=== PATIENT | male | born 1975 | race Caucasian/White ===

== ENCOUNTER 2017-07-15 14:23 | Emergency (ER) | payer BC, SELFPAY ==
[~2017-07-15] VITALS: Ht 170.2 cm; Wt 79.4 kg
[2017-07-15 14:45] VITALS: BP 126/75
[2017-07-15] MEDS ORDERED: MOTRIN PO STA (14:54)
[2017-07-15] MEDS ORDERED: CLEOCIN PO STA (14:54)
[2017-07-15] MEDS ORDERED: MOTRIN ONE (14:58)
[2017-07-15] MEDS ORDERED: CLEOCIN ONE (14:58)
--- NOTE | 2017-07-15 14:59 | ER.PDOC ---
General Chief Complaint: Toothache Stated Complaint: TOOTHACHE Time seen by MD: 14:46 Source: patient Exam Limitations: no limitations History of Present Illness Initial Comments Pain, swelling L lower jaw for 3-4 days. No fever. Hx "bad tooth". Timing/Duration: gradual Severity: moderate Allergies: Coded Allergies: No Known Allergies (Unverified , 07/15/17) Past Medical History Medical History: thyroid disease Social History Smoking: greater than 1 pack/day Alcohol Use: none Drug Use: marijuana Reviewed Nursing Reviewed: Vital Signs, Abn. Noted, Nursing Assessment Constitutional: no symptoms reported Eyes: no symptoms reported Ears: no symptoms reported Nose: no symptoms reported Mouth: see HPI Throat: no symptoms reported Respiratory: no symptoms reported Cardiovascular: no symptoms reported All Other Systems: Reviewed and Negative Physical Exam General Appearance: alert, mild distress Head/Neck: head nml inspection, neck nml inspection, trachea midline, no lymphadenopathy, (L) mandibular swelling (Tender, firm mass lat to L lower bicuspids.) Mouth: widespread dental decay Throat: pharynx nml, voice nml, no airway problems Respiratory: no resp. distress, lungs clear CVS: reg. rate & rhythm, heart sounds nml Departure Time of Disposition: 14:57 Disposition: 01 HOME, SELF-CARE Impression: Primary Impression: Abscess of mandible Condition: Stable Patient Instructions: Dental Abscess Referrals: PCP,UNKNOWN (PCP) PRIMARY CARE PROVIDER Additional Instructions: Heat to jaw. Gentle massage of lump. Duration or Time Spent with Pa: 15 KAMRAN HERMAN DO Jul 15, 2017 14:59
[2017-07-15 15:21] VITALS: BP 126/75
== END 2017-07-15 15:16 | disposition home or self-care (01) ==
LOC: ER 14:23
DX: M27.2 Inflammatory conditions of jaws (principal); F17.210 Nicotine dependence, cigarettes, uncomplicated; F12.10 Cannabis abuse, uncomplicated; E07.9 Disorder of thyroid, unspecified
CPT/HCPCS: 99283

== ENCOUNTER 2017-08-19 01:12 | Observation (INO) | payer BC ==
[~2017-08-19] VITALS: Ht 177.8 cm; Wt 74.5 kg
[2017-08-19] VITALS (7 sets, daily range): BP systolic 116–140; BP diastolic 67–93
[2017-08-19] MEDS ORDERED: NS 1000ML 1,000 ML ONE ×3 (01:33→04:47)
[2017-08-19] MEDS ORDERED: PHENERGAN ONE (01:34)
[2017-08-19] MEDS ORDERED: NS 1000ML 1,000 ML STA (01:38)
--- NOTE | 2017-08-19 01:38 | ER.PDOC ---
General Chief Complaint: Nausea,Vomiting,Diarrhea Stated Complaint: NAUSEA Time seen by MD: 01:34 Source: patient Exam Limitations: no limitations History of Present Illness Initial Comments Pt started vomiting at about 6:30, vomited about 6 times since then, epigastric pain, no diarrhea Severity/Quality: severe, burning, cramping Abdominal Pain Onset Location: Epigastric Associated Symptoms (vomiting): freq vomitng Allergies: Coded Allergies: No Known Allergies (Unverified , 07/15/17) Vital Signs First Vital Signs Date Time Temp Pulse Resp B/P (MAP) Pulse Ox O2 Delivery O2 Flow Rate FiO2 07/15/17 15:21 75 08/19/17 01:28 97.7 18 100 Room Air 08/19/17 01:31 140/93 (109) Last Vital Signs Date Time Temp Pulse Resp B/P (MAP) Pulse Ox O2 Delivery O2 Flow Rate FiO2 08/19/17 01:31 97.7 81 18 140/93 (109) 100 Room Air Past Medical History Medical History: other Surgical History: no surgical history Social History Smoking: cigarettes, greater than 1 pack/day Alcohol Use: none Drug Use: marijuana Constitutional: no symptoms reported EENTM: no symptoms reported Respiratory: no symptoms reported Cardiovascular: no symptoms reported Gastrointestinal: see HPI, nausea, vomiting Genitourinary: no symptoms reported Musculoskeletal: no symptoms reported Skin: no symptoms reported Psychiatric/Neurological: no symptoms reported Endocrine: no symptoms reported Hematologic/Lymphatic: no symptoms reported Physical Exam General Appearance: No Apparent Distress, WD/WN HEENT: PERRL/EOMI, Normal ENT Inspection, TMs Normal, Pharynx Normal Neck: Non-Tender, Full Range of Motion, Supple, Normal Inspection Respiratory: chest non-tender, lungs clear, normal breath sounds, no respiratory distress, no accessory muscle use Cardiovascular: Normal Peripheral Pulses, Regular Rate, Rhythm, No Edema, No Gallop, No JVD, No Murmur Gastrointestinal: Normal Bowel Sounds, Soft, Tenderness (epigastrium) Back: Normal Inspection, No CVA Tenderness, No Vertebral Tenderness Extremities: Normal Range of Motion, Non-Tender, Normal Inspection, No Pedal Edema, No Calf Tenderness, Normal Capillary Refill, Pelvis Stable Neurologic/Psychiatric: side stitcher II-XII NML as Tested, No Motor/Sensory Deficits, Alert, Normal Mood/Affect, Oriented x 3 Skin: Normal Color, Warm/Dry Lymphatic: No Adenopathy Results/Orders Results/Orders Laboratory Tests Test 08/19/17 01:48 White Blood Count 10.3 10^3/uL (4.5-11.0) Red Blood Count 4.88 10^6/uL (4.50-5.90) Hemoglobin 14.0 g/dL (13.9-16.3) Hematocrit 42.5 % (37.0-53.0) Mean Corpuscular Volume 87.1 fL (78-100) Mean Corpuscular Hemoglobin 28.7 pg (26-34) Mean Corpuscular Hemoglobin Concent 32.9 g/dL (33-37) Red Cell Distribution Width 14.7 % (11.5-14.5) Platelet Count 270 10^3/uL (150-400) Mean Platelet Volume 9.6 fL (7.8-11.0) Neutrophils (%) (Auto) 76.9 % (41.0-85.0) Lymphocytes (%) (Auto) 16.1 % (24.0-44.0) Monocytes (%) (Auto) 5.5 % (5.0-12.0) Neutrophils # (Auto) 7.9 10^3/uL (1.8-7.7) Lymphocytes # (Auto) 1.7 10^3/uL (1.0-4.8) Monocytes # (Auto) 0.6 10^3/uL (0.3-0.8) Eosinophils % 0.3 % (0.0-5.0) Basophils % 1.2 % (0.0-0.2) Basophils # 0.1 10^3/uL (0.0-0.1) Eosinophil Count 0.0 10^3/uL (0.0-0.2) Sodium Level 139 mmol/L (132-145) Potassium Level 3.9 mmol/L (3.6-5.2) Chloride Level 100.0 mmol/L (96-109) Carbon Dioxide Level 20.2 mmol/L (20.0-32) Anion Gap 22.7 Blood Urea Nitrogen 16 mg/dL (7-18) Creatinine 1.72 mg/dL (0.59-1.40) Estimated GFR () 52.5 (>/=60) BUN/Creatinine Ratio 9.0 Glucose Level 254 mg/dL (70-110) Calcium Level 9.5 mg/dL (8.4-10.5) Total Bilirubin 0.4 mg/dL (0.2-1.0) Aspartate Amino Transf (AST/SGOT) 21 U/L (0-35) Alanine Aminotransferase (ALT/SGPT) 25 U/L (12-78) Alkaline Phosphatase 73 U/L (50-136) Total Protein 7.7 g/dL (6.4-8.2) Albumin 4.4 g/dL (3.4-5.0) Globulin 3.3 Amylase Level 44 U/L (25-115) Lipase 115 U/L (114-286) Administered Medications Medications (Trade) Dose Ordered Sig/Yojana Route PRN Reason Start Time Stop Time Status Last Admin Dose Admin Sodium Chloride 1,000 ml @ 1,000 mls/hr Q1H STAT IV 08/19/17 01:38 08/19/17 02:37 DC 08/19/17 01:51 Ondansetron HCl (Zofran) 4 mg STAT STAT IV 08/19/17 02:18 08/19/17 02:20 DC 08/19/17 02:33 Sodium Chloride 1,000 ml @ 1,000 mls/hr Q1H ONCE IV 08/19/17 03:00 08/19/17 03:59 08/19/17 02:56 Departure Time of Disposition: 03:03 Disposition: 01 HOME, SELF-CARE Impression: Primary Impression: Dehydration Additional Impressions: Nausea & vomiting Diarrhea Condition: Stable Patient Instructions: Dehydration, Adult, Diarrhea, Nausea and Vomiting, Easy- to-Read Referrals: PCP,UNKNOWN (PCP) PRIMARY CARE PROVIDER Duration or Time Spent with Pa: ROBERT CATES MD Aug 19, 2017 01:38
--- NOTE | 2017-08-19 01:52 | NUR ---
VERBAL ORDER PHENERGAN 25MG IV PER VERBAL ORDER FROM DR WOODS AT THIS TIME. ADMINISTERED AT THIS TIME.
[2017-08-19 01:56] LABS: BASOPHIL # 0.1 10^3/uL (0.0-0.1); BASOPHIL % 1.2 % (0.0-0.2); EOSINOPHIL % 0.3 % (0.0-5.0); LYMPHOCYTES # 1.7 10^3/uL (1.0-4.8); LYMPHOCYTES % 16.1 % (24.0-44.0); MEAN CELL HGB 28.7 pg (26-34); MEAN CELL HGB CONCENTRATION 32.9 g/dL (33-37); MEAN CORP VOLUME 87.1 fL (78-100); MEAN PLATELET VOLUME 9.6 fL (7.8-11.0); MONOCYTES # 0.6 10^3/uL (0.3-0.8); MONOCYTES % 5.5 % (5.0-12.0); NEUTROPHIL # 7.9 10^3/uL (1.8-7.7); NEUTROPHILS % 76.9 % (41.0-85.0); PLATELET COUNT 270 10^3/uL (150-400); RED CELL DISTRIBUTION WIDTH 14.7 % (11.5-14.5); WHITE BLOOD CELL 10.3 10^3/uL (4.5-11.0)
[2017-08-19] MEDS ORDERED: PHENERGAN 25 MG in HNS 50ML 50 ML IV PRN (02:00)
[2017-08-19 02:09] LABS: CALCIUM 9.5 mg/dL (8.4-10.5); CARBON DIOXIDE 20.2 mmol/L (20.0-32)
[2017-08-19] MEDS ORDERED: ZOFRAN IV STA (02:18)
[2017-08-19] MEDS ORDERED: ZOFRAN ONE (02:22)
--- NOTE | 2017-08-19 02:45 | NUR ---
BATHROOM PT UP TO BATHROOM AT THIS TIME.
[2017-08-19] MEDS ORDERED: NS 1000ML 1,000 ML IV ONE (03:00)
[2017-08-19] MEDS ORDERED: TRIPLE ANTIBIOTIC OINTMENT TP ONE (03:00)
--- NOTE | 2017-08-19 03:30 | NUR ---
UPDATE PT RESTING IN BED WITH BP CUFF OFF. PT REFUSE TO PUT CUFF ON AT THIS TIME DUE TO "NEEDING TO MOVE TO GET COMFORTABLE".
[2017-08-19] MEDS ORDERED: COMPAZINE ONE (03:55)
[2017-08-19] MEDS ORDERED: COMPAZINE IV STA (03:56)
--- NOTE | 2017-08-19 04:40 | NUR ---
BATHROOM PT UP TO BATHROOM AT THIS TIME.
[2017-08-19] MEDS ORDERED: ATIVAN ONE (04:47)
[2017-08-19] MEDS ORDERED: THORAZINE ONE (04:52)
[2017-08-19] MEDS: NS 1000ML 1,000 ML IV SCH ×5 (05:05→23:12)
[2017-08-19] MEDS ORDERED: THORAZINE IM STA (05:05)
--- NOTE | 2017-08-19 05:17 | NUR ---
DR SELMA WOODS ON PHONE WITH DR HAHN AT THIS TIME.
[2017-08-19] MEDS ORDERED: LORA2TAB PO (05:26)
[2017-08-19] MEDS ORDERED: CLON1TAB3 PO (05:26)
--- NOTE | 2017-08-19 05:27 | NUR ---
HOME MEDS PT STATES "I TAKE A SYNTHROID PILL, TOO, BUT I DON'T KNOW THE DOSE OR WHATEVER." PT COULD NOT TELL HOW OFTEN MEDICINE WAS TAKEN.
[2017-08-19] MEDS ORDERED: ZOFRAN IV PRN ×2 (05:30→11:00)
[2017-08-19 05:33] LABS: BASOPHIL # 0.1 10^3/uL (0.0-0.1); BASOPHIL % 0.6 % (0.0-0.2); HEMOGLOBIN 12.9 g/dL (13.9-16.3); LYMPHOCYTES # 0.9 10^3/uL (1.0-4.8); LYMPHOCYTES % 6.7 % (24.0-44.0); MEAN CELL HGB 28.7 pg (26-34); MEAN CELL HGB CONCENTRATION 32.4 g/dL (33-37); MEAN CORP VOLUME 88.6 fL (78-100); MEAN PLATELET VOLUME 9.6 fL (7.8-11.0); MONOCYTES # 0.8 10^3/uL (0.3-0.8); MONOCYTES % 5.5 % (5.0-12.0); NEUTROPHIL # 12.2 10^3/uL (1.8-7.7); NEUTROPHILS % 86.8 % (41.0-85.0); RED CELL DISTRIBUTION WIDTH 14.8 % (11.5-14.5); WHITE BLOOD CELL 14.1 10^3/uL (4.5-11.0)
--- NOTE | 2017-08-19 05:43 | NUR ---
MEDSURG PT TO MEDSURG AT THIS TIME VIA WHEELCHAIR. PT'S BELONGINGS TAKEN WITH PT TO MEDSURG. REPORT GIVEN TO SETH THIBODEAUX.
[2017-08-19 05:46] LABS: CALCIUM 8.9 mg/dL (8.4-10.5); CARBON DIOXIDE 25.3 mmol/L (20.0-32)
--- NOTE | 2017-08-19 05:47 | NUR ---
report received report from ER nurse Pt arrived on a wheel chair accompanied by staff and mother. Vital signs taken and recorded. Assessment done. No s/sx of nay distress. Pt verbalized that he still nauseous. Call light placed within reach. Will continue to monitor.
[2017-08-19 06:07] LABS: BAND NEUTROPHILS 6 % (2-6); BASOPHIL 2 % (0-2); LYMPHOCYTE 4 % (25-36); MONOCYTE 5 % (3-9); SEGMENTED NEUTROPHILS 83 % (31-76)
--- NOTE | 2017-08-19 06:43 | NUR ---
REPORT RECEIVED REPORT, ASSUMED CARE FOR PATIENT AT THIS TIME.
--- NOTE | 2017-08-19 06:45 | NUR ---
RECEIVED REPORT FROM MORELIA ANN. ASSUMED PT CARE.
--- NOTE | 2017-08-19 06:45 | NUR ---
report report given to o/c shift
[2017-08-19] MEDS ORDERED: REGLAN IV PRN (11:00)
[2017-08-19] MEDS ORDERED: TYLENOL PO PRN (11:00)
--- NOTE | 2017-08-19 13:26 | HPH ---
ADMIT DATE: 08/19/2017 CHIEF COMPLAINT: Nausea and vomiting. HISTORY OF PRESENT ILLNESS: The patient is a 42-year-old male with no significant past medical history other than anxiety disorder, who presented to ER with complaints of nausea and vomiting. He states he ate one of those precooked chickens from [employer] yesterday. He started having nausea and vomiting later that day. The onset of symptoms was about 7:00 p.m. last night. He was given fluids and multiple medications in the ER, still had persistent nausea and vomiting. No other acute changes. No fever or chills. PAST MEDICAL HISTORY: Includes anxiety disorder. PAST SURGICAL HISTORY: Denies any surgeries. ALLERGIES: No known drug allergies. HOME MEDICATIONS: He only takes a benzodiazepine twice daily, it is unclear which one. SOCIAL HISTORY: Lives at home. He does have a history of marijuana and tobacco use. Denies any alcohol use. FAMILY HISTORY: Negative for early coronary artery disease or diabetes. REVIEW OF SYSTEMS: CARDIAC: Denies chest pain, shortness of breath or dyspnea on exertion. PULMONARY: No cough, sputum production or pleuritic chest pain. GASTROINTESTINAL: Positive for nausea and vomiting. No diarrhea or constipation. All else negative in 10 point review of system except as in HPI. PHYSICAL EXAMINATION: VITAL SIGNS: Upon arrival in the ER, height 177.8 cm, weight 78.1 kilograms, temperature 97.7, pulse 81, respiratory rate is 18, blood pressure 140/93, O2 saturation 100% on room air. GENERAL: He is alert, in no acute distress at time of exam. HEENT: Pupils equal, round and reactive to light. Sclerae are anicteric. Oropharynx is clear. Mucous membranes are moist. NECK: Supple, no lymphadenopathy. CARDIOVASCULAR: At time of exam was regular rate and rhythm. LUNGS: Clear bilaterally. No wheezing. ABDOMEN: Soft. Bowel sounds are present, nontender to palpation. EXTREMITIES: No cyanosis, clubbing or edema. NEUROLOGIC: Grossly nonfocal. LABORATORY DATA: He has CBC done this morning. WBC is 14.1, hemoglobin 12.9, platelets 230. Differential: 87% neutrophils, 7% lymphocytes, 5% monocytes. Sodium 140; potassium 4.2; chloride 105; CO2 is 25; BUN 15; creatinine 1.31, initial creatinine is 1.72, glucose 161, calcium is 8.9, total bilirubin 0.4, AST 17, ALT 24, alkaline phosphatase 65, total protein 7.0, albumin 3.9, amylase 44, lipase 115. ASSESSMENT AND PLAN: The patient is a 42-year-old man here with acute gastroenteritis, possibly secondary to food poisoning with history of tobacco and marijuana use with acute renal failure secondary to acute tubular necrosis due to dehydration. 1. Continue IV fluid hydration. 2. Diet as tolerated. 3. Appropriate p.r.n. pain and nausea medication. 4. We will continue his Ativan twice daily. 5. DVT prophylaxis will be with Lovenox if in the hospital more than 24 hours. Time spent on 08/19/2017 is 45 minutes. This plan was discussed with the patient. He is his own decision maker. He does understand and concur with plans. Atilio Bustillos MD DR: JENELLE/peyton JOB# [id number]
--- NOTE | 2017-08-19 17:20 | NUR ---
PT DENIES ANY PAIN, DENIES NAUSEA. PT REPORTS "STOMACH IS TENDER, SO I DON'T WANT TO EAT". ICE WATER AND ICE CHIPS OFFERED TO PT, ENCOURAGED TO USE URINAL TO EVALUATE URINE AMOUNT. PT VERBALIZED UNDERSTANDING, DENIES ANY FURTHER NEEDS AT THIS TIME.
--- NOTE | 2017-08-19 18:38 | NUR ---
REPORT GIVEN TO Bernadette SIM LVN
--- NOTE | 2017-08-19 19:20 | NUR ---
STATUS PATIENT RESTING IN BED. BED IN LOCKED LOW POSITION, CALL LIGHT WITHIN REACH, SIDE RAILS UP X2. PATIENT STATES NO NEEDS AT THIS TIME.
[2017-08-19] MEDS: ATIVAN PO SCH (20:24)
[2017-08-20 04:00] VITALS: BP 122/76
[2017-08-20] MEDS: NS 1000ML 1,000 ML IV SCH (04:28)
[2017-08-20 05:27] LABS: BASOPHIL # 0.1 10^3/uL (0.0-0.1); BASOPHIL % 0.6 % (0.0-0.2); EOSINOPHIL % 0.2 % (0.0-5.0); HEMOGLOBIN 11.5 g/dL (13.9-16.3); LYMPHOCYTES # 2.1 10^3/uL (1.0-4.8); LYMPHOCYTES % 20.9 % (24.0-44.0); MEAN CELL HGB 28.8 pg (26-34); MEAN CELL HGB CONCENTRATION 31.8 g/dL (33-37); MEAN CORP VOLUME 90.7 fL (78-100); MEAN PLATELET VOLUME 9.9 fL (7.8-11.0); MONOCYTES # 1.1 10^3/uL (0.3-0.8); NEUTROPHIL # 6.6 10^3/uL (1.8-7.7); NEUTROPHILS % 67.3 % (41.0-85.0); PLATELET COUNT 197 10^3/uL (150-400); WHITE BLOOD CELL 9.9 10^3/uL (4.5-11.0)
[2017-08-20 06:14] LABS: CALCIUM 8.3 mg/dL (8.4-10.5); CARBON DIOXIDE 21.5 mmol/L (20.0-32)
[2017-08-20] MEDS: ATIVAN PO SCH (08:10)
[2017-08-20 08:13] VITALS: BP 113/68
[2017-08-20 09:00] VITALS: BP 113/68
--- NOTE | 2017-08-20 09:00 | NUR ---
DISCHARGE FAMILY MEMBER AT BEDSIDE. EDUCATED PATIENT ON NEW MEDICATIONS, DIET, ACTIVITY LEVEL, REPORTABLE S/S, AND FOLLOW UP APPOINTMENT. PATIENT VERBALIZED UNDERSTANDING. PATIENT TAKEN DOWN TO PRIVATE VEHICLE VIA WHEELCHAIR ACCOMPANIED BY EVANS SANTOS AND FAMILY MEMBER. NO S/S OF DISTRESS
--- NOTE | 2017-08-20 15:53 | DSH ---
DATE OF DISCHARGE: 08/20/2017 ADMITTING DIAGNOSIS: Gastroenteritis with acute tubular necrosis secondary to dehydration with acute tubular necrosis. DISCHARGE DIAGNOSIS: Acute gastroenteritis, resolving with acute tubular necrosis, resolved. HOSPITAL COURSE: The patient is a 42-year-old gentleman who came in with a likely food poisoning with some nausea, vomiting and then started to have some diarrhea. He was clinically dehydrated coming to the ER. His creatinine was up to 1.72 and he had acute renal failure picture with ATN. He was given a fluid bolus and started on IV fluids overnight. He is feeling a lot better this morning. He is not throwing up anymore. He is tolerating his p.o. intake. I did explain to him that diarrhea would be the last thing to go and he understands this, but he feels much improved at this point and would like to go home. He will be discharged today. I have asked him to advance his diet as tolerated and stay hydrated. He does not have a PCP to follow up with and I asked him to find one to see in the near future ____ for primary prevention of certain disease processes and he understands this and he is to have regular activity. Randee Cruz MD DR: RALF/peyton JOB# [id number]
== END 2017-08-20 09:08 | disposition home or self-care (01) ==
LOC: ER 01:12 → MS 05:27 → INTOOBSV 05:27
PROVIDERS: ADMIT Internal Medicine; ATTEND Internal Medicine
DX: K52.9 Noninfective gastroenteritis and colitis, unspecified (principal); N17.0 Acute kidney failure with tubular necrosis; E86.0 Dehydration; F17.210 Nicotine dependence, cigarettes, uncomplicated; F12.90 Cannabis use, unspecified, uncomplicated; F41.9 Anxiety disorder, unspecified
CPT/HCPCS: 36415 ×2; 80048; 80053 ×2; 82150; 83690; 85025 ×3; 96361 ×4; 96372; 96374; 96375 ×2; 99285; G0378 ×28; J0780; J2060; J2405 ×2; J2550; J3230; J7030 ×7

== ENCOUNTER 2017-09-23 12:21 | Emergency (ER) | payer BC ==
[~2017-09-23] VITALS: Ht 172.7 cm; Wt 83.9 kg
[~2017-09-23 12:21] MED LIST: CLON1TAB3 PO; LORA2TAB PO
[2017-09-23 12:49] VITALS: BP 119/78
--- NOTE | 2017-09-23 13:07 | ER.PDOC ---
General Chief Complaint: Toothache Stated Complaint: TOOTHACHE Time seen by MD: 13:00 Source: patient Exam Limitations: no limitations History of Present Illness Timing/Duration: yesterday Context: fractured tooth Associated Symptoms: fever/chills, facial pain, swollen face, jaw pain (R) Severity: mild Worsen By: nothing Prior symptoms/Treatment: Similar symptoms previous Allergies: Coded Allergies: No Known Allergies (Unverified , 07/15/17) Home Meds Reported Medications Lorazepam (LORAZEPAM) 2 Mg Tablet, 2 MG PO BID, TABLET 08/19/17 Past Medical History Surgical History: no surgical history Family History Significant Family History: no pertinent family hx Social History Smoking: less than 1 pack/day Alcohol Use: none Drug Use: marijuana Reviewed Nursing Reviewed: Vital Signs, Abn. Noted All Other Systems: Reviewed and Negative Physical Exam General Appearance: alert Head/Neck: (R) maxillary swelling Mouth: dental tenderness, gum swelling Throat: pharynx nml, voice nml, no airway problems Ears/Nose: nml inspection Respiratory: no resp. distress, lungs clear CVS: reg. rate & rhythm, heart sounds nml Abdomen: non-tender, no organomegaly Extremities: non-tender, ROM nml NEURO/PSYCH: oriented X3, mood/effect nml Departure Time of Disposition: 13:33 Disposition: 01 HOME, SELF-CARE Impression: Primary Impression: Abscess of maxilla Condition: Stable Referrals: PCP,UNKNOWN (PCP) PRIMARY CARE PROVIDER Duration or Time Spent with Pa: 30 min BRIAN KABA MD Sep 23, 2017 13:07
[2017-09-23 13:29] VITALS: BP 119/78
== END 2017-09-23 13:15 | disposition home or self-care (01) ==
LOC: ER 12:21
DX: M27.2 Inflammatory conditions of jaws (principal); F17.210 Nicotine dependence, cigarettes, uncomplicated; F12.10 Cannabis abuse, uncomplicated
CPT/HCPCS: 99283